=== PATIENT | female | born 1960 | race Caucasian/White ===

== ENCOUNTER 2020-11-20 10:08 | Emergency (ER) | payer OTHER ==
[~2020-11-20] VITALS: Ht 170.2 cm; Wt 60.0 kg
--- NOTE | 2020-11-20 10:54 | PHYS DOC ---
Past History Past Medical History: Diabetes, Hypertension (RILEY EVANS APRN) General Adult EDM: Chief Complaint: NAUSEA/VOMITING/DIARRHEA HPI: HPI: Patient is a 60-year-old female that presents today with multiple complaints. Per son patient symptoms started after second Covid vaccine on October 16, 2020. Patient's son states after vaccine patient had experienced fever chills abdominal pain and cough and though symptoms have continued. Patient has been seen multiple times by primary care physician per son, outpatient labs have been completed by primary care physician son is unsure of results. Patient was to have an outpatient CT scan at [facility] and son declined to take patient stating that he she needed to be seen sooner than that. Son also reports patient fell yesterday in the middle of the night, patient unsure if she passed out or not. Patient also reports abdominal pain patient also reports no bowel movement x3 weeks. Patient also reports psoriasis is acting up. Patient states she check her blood sugar this am and it was 97.[] (RILEY EVANS FRAUD ANALYST) Review of Systems: Review of Systems: Constitutional: fever or chills Eyes: Denies change in visual acuity HENT: nasal congestion, no sore throat Respiratory: shortness of breath Cardiovascular: Denies chest pain or edema GI: abdominal pain, nausea, vomiting, bloody stools or diarrhea : Denies dysuria Musculoskeletal: Denies back pain or joint pain Integument: Denies rash Neurologic: Denies headache, C/O dizziness and balance issues. Endocrine: Denies polyuria or polydipsia Lymphatic: Denies swollen glands Psychiatric: Denies depression or anxiety (RILEY EVANS APRN) Current Medications: Current Meds: Metformin thyroid medications (RILEY EVANS APRN) Allergies: Allergies: Allergies Coded Allergies Type Severity Reaction Last Updated Verified No Known Drug Allergies 11/20/20 No (RILEY EVANS APRN) Physical Exam: PE: Constitutional: Patient thin no acute distress noted HENT: Bruising abrasion noted to bridge of nose, mucous membranes dry tongue with white film. [] Eyes: PERRLA, EOMI, conjunctiva normal, no discharge. [] Neck: Normal range of motion, no tenderness, supple, no stridor. [] Cardiovascular:Heart rate regular rhythm, no murmur [] Lungs & Thorax: Bilateral breath sounds clear to auscultation [] Abdomen: Bowel sounds hypoactive, soft, tenderness over left upper and lower abdomen [] Skin: Psoriasis rash noted over arms and hands, abrasion to left hand [] Back: No tenderness, no CVA tenderness. [] Extremities: No tenderness, no cyanosis, no clubbing, ROM intact, no edema. [] Neurologic: Alert and oriented X 3, normal motor function, normal sensory function, no focal deficits noted. [] Psychologic: Affect flat, normal judgement noted. [] (RILEY EVANS APRN) Current Patient Data: Labs: Laboratory Tests Test 11/20/20 10:55 11/20/20 12:25 White Blood Count 8.8 x10^3/uL Red Blood Count 5.36 x10^6/uL Hemoglobin 15.4 g/dL Hematocrit 46.9 % Mean Corpuscular Volume 88 fL Mean Corpuscular Hemoglobin 29 pg Mean Corpuscular Hemoglobin Concent 33 g/dL Red Cell Distribution Width 15.9 % Platelet Count 169 x10^3/uL Neutrophils (%) (Auto) 64 % Lymphocytes (%) (Auto) 26 % Monocytes (%) (Auto) 7 % Eosinophils (%) (Auto) 2 % Basophils (%) (Auto) 1 % Neutrophils # (Auto) 5.6 x10^3uL Lymphocytes # (Auto) 2.3 x10^3/uL Monocytes # (Auto) 0.6 x10^3/uL Eosinophils # (Auto) 0.2 x10^3/uL Basophils # (Auto) 0.1 x10^3/uL Sodium Level 140 mmol/L Potassium Level 4.7 mmol/L Chloride Level 101 mmol/L Carbon Dioxide Level 23 mmol/L Anion Gap 16 Blood Urea Nitrogen 43 mg/dL Creatinine 1.8 mg/dL Estimated GFR (Cockcroft-Gault) 28.7 BUN/Creatinine Ratio 24 Glucose Level 86 mg/dL Lactic Acid Level 1.5 mmol/L Calcium Level 10.9 mg/dL Total Bilirubin 0.6 mg/dL Aspartate Amino Transf (AST/SGOT) 14 U/L Alanine Aminotransferase (ALT/SGPT) 20 U/L Alkaline Phosphatase 84 U/L Total Protein 7.4 g/dL Albumin 4.2 g/dL Albumin/Globulin Ratio 1.3 Urine Collection Type Unknown Urine Color Yellow Urine Clarity Clear Urine pH 5.5 Urine Specific Thompson >=1.030 Urine Protein 100 mg/dl Urine Glucose (UA) Neg mg/dL Urine Ketones (Stick) >=160 mg/dL Urine Blood Neg Urine Nitrite Neg Urine Bilirubin Large Urine Urobilinogen Dipstick 1.0 mg/dL Urine Leukocyte Esterase Neg Urine RBC Occ /HPF Urine WBC 5-10 /HPF Urine Squamous Epithelial Cells Many /LPF Urine Bacteria 0 /HPF Urine Hyaline Casts Occ /HPF Urine Mucus Slight /LPF Urine Yeast Present /HPF Urine Opiates Screen Neg Urine Methadone Screen Neg Urine Barbiturates Neg Urine Phencyclidine Screen Neg Urine Amphetamine/Methamphetamine Neg Urine Benzodiazepines Screen Neg Urine Cocaine Screen Neg Urine Cannabinoids Screen Neg Urine Ethyl Alcohol Neg Current Medications Medications (Trade) Dose Ordered Sig/Ryan Route PRN Reason Start Time Stop Time Status Last Admin Dose Admin Iohexol (Omnipaque 300 Mg/ml) 75 ml 1X ONCE IV 11/20/20 11:00 11/20/20 11:01 DC Sodium Chloride 1,000 ml @ 1,000 mls/hr 1X ONCE IV 11/20/20 11:00 11/20/20 11:59 DC 11/20/20 11:22 Acetaminophen (Tylenol) 1,000 mg 1X ONCE PO 11/20/20 11:15 11/20/20 11:26 DC 11/20/20 11:23 (RILEY EVANS FRAUD ANALYST) EKG: EKG: [] (RILEY EVANS APRN) Radiology/Procedures: Radiology/Procedures: PROCEDURE: CT ABDOMEN PELVIS WO CONTRAST EXAMINATION: CT abdomen and pelvis without IV contrast. INDICATION:60 years, Female, fall with dizziness. TECHNIQUE: Axial CT images of the abdomen and pelvis were obtained. Coronal and sagittal reformatted performed. COMPARISON: 11/11/2005. Exposure: One or more of the following individualized dose reduction techniques were utilized for this examination: 1. Automated exposure control 2. Adjustment of the mA and/or kV according to patient size 3. Use of iterative reconstruction technique. FINDINGS: LOWER CHEST: Mild to moderate centrilobular pulmonary emphysema. Trace amount of pericardial effusion. ABDOMEN/PELVIS: Within limitation of noncontrast exam, Normal size and morphology of the liver. Geographic shape hypoattenuating area in hepatic segment 4 adjacent to falciform ligament measures 3.6 x 2.1 cm, favors to represent focal fat infiltration. Tiny calcified cholelithiasis. No acute cholecystitis. No biliary ductal dilation. Unremarkable spleen and adrenal glands. Focal fullness of the pancreatic body (series 4 image 42). No hydronephrosis or nephrolithiasis kidney. No bowel obstruction or wall thickening. Normal appendix. Colonic diverticulosis without acute diverticulitis. Moderate aortoiliac atherosclerotic disease without dilatation. No lymphadenopathy in the abdomen or pelvis by size criteri a. No pneumoperitoneum or ascites. Decompressed urinary bladder which limits evaluation. Hysterectomy changes. MUSCULOSKELETAL: No acute osseous process or suspicious lesion. Multilevel degenerative changes in the spine. IMPRESSION: 1. No acute abnormality in the abdomen or pelvis, within the limitation of noncontrast exam. 2. Focal fullness of the pancreatic body, may represent focal lobulation of the normal pancreatic parenchyma. Recommend further evaluation with CT/MRI abdomen without IV contrast to exclude underlying neoplasm. 3. Geographic shape 3.6 cm hypoattenuating area in hepatic segment 4 adjacent to falciform ligament, favors focal fat infiltration. This can be further evaluated by the recommended exam. 4. Colonic diverticulosis. 5. Tiny calcified cholelithiasis. Electronically signed by: Forrest Hayward MD (11/20/2020 12:06 PM) [facility] [REASON: fall with dizziness PROCEDURE: CT HEAD WO CONTRAST PQRS Compliance Statement: One or more of the following individualized dose reduction techniques were utilized for this examination: 1. Automated exposure control 2. Adjustment of the mA and/or kV according to patient size 3. Use of iterative reconstruction technique CT head without contrast 11/20/2020 11:35 AM INDICATION: Fall with dizziness COMPARISON: None available TECHNIQUE: Multiple axial CT images of the head were obtained from skull base through the vertex without intravenous contrast. FINDINGS: Head: Ventricles, sulci and basal cisterns are within normal limits. Low-attenuation in the periventricular white matter is suggestive of chronic small vessel ischemic changes. There is no hydrocephalus. [place]-white matter differentiation is normal. There is no acute intracranial hemorrhage. There is no mass, mass effect or midline shift. Posterior fossa is normal in appearance. Visualized portions of the orbits are normal. Paranasal sinuses are well aerated. Mastoid air cells are well aerated. Scalp and calvaria are normal. IMPRESSION: No acute intracranial hemorrhage. Low-attenuation in the periventricular white matter is suggestive of chronic small vessel ischemic changes. Electronically signed by: Joslyn Sweet MD (11/20/2020 12:32 PM) [id number]] REASON: fever and cough PROCEDURE: CHEST PA & LATERAL EXAM: CHEST 2 VIEWS. HISTORY: Fever and cough. COMPARISON: None. FINDINGS: Frontal and lateral views of the chest are obtained. There are no confluent infiltrates. There is no pneumothorax or pleural effusion. The heart is not enlarged. IMPRESSION: 1. No confluent infiltrates. Electronically signed by: Sarah Atwood MD (11/20/2020 12:32 PM) [id number] (RILEY EVANS APRN) Heart Score: C/O Chest Pain: N/A Risk Factors: Risk Factors: DM, Current or recent (<one month) smoker, HTN, HLP, family history of CAD, obesity. Risk Scores: Score 0 - 3: 2.5% MACE over next 6 weeks - Discharge Home Score 4 - 6: 20.3% MACE over next 6 weeks - Admit for Clinical Observation Score 7 - 10: 72.7% MACE over next 6 weeks - Early Invasive Strategies (RILEY EVANS APRN) Course & Med Decision Making: Course & Med Decision Making Pertinent Labs and Imaging studies reviewed. (See chart for details) 1140 spoke to son regarding medications patient takes son states the patient takes Metformin and some kind of thyroid medication son also states that they have been adjusting patient's thyroid medication due to abnormal lab levels over the last 3 to 4 weeks.[] 1350 spoke with patient and significant other regarding lab results and x-ray results. Patient states that she has not been eating very much and has been not drinking very much as well. Patient encouraged to drink and eat at least 1500 to 2000 humberto with equal portions of good fats proteins and carbohydrates. Patient instructed to follow-up with primary care physician for further evaluation of radiology results. Patient to be sent home. Patient and significant other agree with plan of care. Will give remaining IV fluids and send patient home. (RILEY EVANS APRN) Dragon Disclaimer: Dragon Disclaimer: This electronic medical record was generated, in whole or in part, using a voice recognition dictation system. (RILEY EVANS APRN) Attending Co-Sign The patient was seen and interviewed as well as examined at the bedside. The art was reviewed. The case was discussed. Agree with the plan of care. (FÁTIMA ADAN DO) Departure Departure: Impression: Primary Impression: Viral syndrome Additional Impressions: Dehydration Decrease in appetite Disposition: HOME / SELF CARE / HOMELESS Condition: STABLE Referrals: BARI CHERRY MD (PCP) Patient Instructions: 1800 Calorie Diet for Diabetes Meal Planning, Dehydration, Adult, Viral Syndrome Additional Instructions: Keep a food diary to determine caloric intake, make sure it is a balance of good fats proteins and carbohydrates. Increase fluid intake. Treat fever with Tylenol last dose 1130 Follow-up with primary care physician in the next 2 to 3 days. Return to the emergency department if symptoms get worse. RILEY EVANS APRN Nov 20, 2020 10:54 FÁTIMA ADAN DO Nov 20, 2020 17:34
[2020-11-20] MEDS ORDERED: IOHEXOL 300 MG/ML 75 ML VIAL. IV ONE (11:00)
[2020-11-20 11:17] LABS: BASO # 0.1 x10^3/uL (0.0-0.2); BASO % 1 % (0-3); EOS # 0.2 x10^3/uL (0.0-0.7); EOS % 2 % (0-3); HEMATOCRIT 46.9 % (36.0-47.0); HEMOGLOBIN 15.4 g/dL (12.0-15.5); LYMPH # 2.3 x10^3/uL (1.0-4.8); LYMPH % 26 % (24-48); MEAN CORPUSCULAR HEMOGLOBIN 29 pg (25-35); MEAN CORPUSCULAR HGB CONC 33 g/dL (31-37); MEAN CORPUSCULAR VOLUME 88 fL (79-100); MONO # 0.6 x10^3/uL (0.0-1.1); MONO % 7 % (0-9); NEUT # 5.6 x10^3uL (1.8-7.7); NEUT % 64 % (31-73); PLATELET COUNT 169 x10^3/uL (140-400); RED BLOOD COUNT 5.36 x10^6/uL (3.50-5.40); RED CELL DISTRIBUTION WIDTH 15.9 % (11.5-14.5); WHITE BLOOD COUNT 8.8 x10^3/uL (4.0-11.0)
[2020-11-20] MEDS: IV NORMAL SALINE 1,000ML 1,000 ML IV ONE (11:22)
[2020-11-20] MEDS: ACETAMINOPHEN 500 MG TABLET PO ONE (11:23)
[2020-11-20 11:40] LABS: ALBUMIN 4.2 g/dL (3.4-5.0); ALBUMIN/GLOBULIN RATIO 1.3 (1.0-1.7); CALCIUM 10.9 mg/dL (8.5-10.1); CREATININE 1.8 mg/dL (0.6-1.0); GFR 28.7; POTASSIUM 4.7 mmol/L (3.5-5.1); TOTAL BILIRUBIN 0.6 mg/dL (0.2-1.0); TOTAL PROTEIN 7.4 g/dL (6.4-8.2)
--- NOTE | 2020-11-20 12:08 | RAD ---
EXAMINATION: CT abdomen and pelvis without IV contrast. INDICATION:60 years, Female, fall with dizziness. TECHNIQUE: Axial CT images of the abdomen and pelvis were obtained. Coronal and sagittal reformatted performed. COMPARISON: 11/11/2005. Exposure: One or more of the following individualized dose reduction techniques were utilized for thi s examination: 1. Automated exposure control 2. Adjustment of the mA and/or kV according to patient size 3. Use of iterative reconstruction technique. FINDINGS: LOWER CHEST: Mild to moderate centrilobular pulmonary emphysema. Trace amount of pericardial effusion. ABDOMEN/PELVIS: Within limitation of noncontrast exam, Normal size and morphology of the liver. Geographic shape hypoattenuating area in hepatic segment 4 a djacent to falciform ligament measures 3.6 x 2.1 cm, favors to represent focal fat infiltration. Tiny calcified cholelithiasis. No acute cholecystitis. No biliary ductal dilation. Unremarkable spleen an d adrenal glands. Focal fullness of the pancreatic body (series 4 image 42). No hydronephrosis or nep hrolithiasis kidney. No bowel obstruction or wall thickening. Normal appendix. Colonic diverticulosis without acute divert iculitis. Moderate aortoiliac atherosclerotic disease without dilatation. No lymphadenopathy in the a bdomen or pelvis by size criteria. No pneumoperitoneum or ascites. Decompressed urinary bladder which limits evaluation. Hysterectomy changes. MUSCULOSKELETAL: No acute osseous process or suspicious lesion. Multilevel degenerative changes in the spine. IMPRESSION: 1. No acute abnormality in the abdomen or pelvis, within the limitation of noncontrast exam. 2. Focal fullness of the pancreatic body, may represent focal lobulation of the normal pancreatic par enchyma. Recommend further evaluation with CT/MRI abdomen without IV contrast to exclude underlying n eoplasm. 3. Geographic shape 3.6 cm hypoattenuating area in hepatic segment 4 adjacent to falciform ligament, favors focal fat infiltration. This can be further evaluated by the recommended exam. 4. Colonic diverticulosis. 5. Tiny calcified cholelithiasis. Electronically signed by: Forrest Hayward MD (11/20/2020 12:06 PM) [facility]
--- NOTE | 2020-11-20 12:35 | RAD ---
EXAM: CHEST 2 VIEWS. HISTORY: Fever and cough. COMPARISON: None. FINDINGS: Frontal and lateral views of the chest are obtained. There are no confluent infiltrates. There is no pneumothorax or pleural effusion. The heart is not en larged. IMPRESSION: 1. No confluent infiltrates. Electronically signed by: Sarah Atwood MD (11/20/2020 12:32 PM) [id number]
--- NOTE | 2020-11-20 12:35 | RAD ---
PQRS Compliance Statement: One or more of the following individualized dose reduction techniques were utilized for this examinat ion: 1. Automated exposure control 2. Adjustment of the mA and/or kV according to patient size 3. Use of iterative reconstruction technique CT head without contrast 11/20/2020 11:35 AM INDICATION: Fall with dizziness COMPARISON: None available TECHNIQUE: Multiple axial CT images of the head were obtained from skull base through the vertex with out intravenous contrast. FINDINGS: Head: Ventricles, sulci and basal cisterns are within normal limits. Low-attenuation in the periventricular white matter is suggestive of chronic small vessel ischemic changes. There is no hydrocephalus. [place] -white matter differentiation is normal. There is no acute intracranial hemorrhage. There is no mass, mass effect or midline shift. Posterior fossa is normal in appearance. Visualized portions of the orbits are normal. Paranasal sinuses are well aerated. Mastoid air cells a re well aerated. Scalp and calvaria are normal. IMPRESSION: No acute intracranial hemorrhage. Low-attenuation in the periventricular white matter is suggestive of chronic small vessel ischemic ch anges. Electronically signed by: Joslyn Sweet MD (11/20/2020 12:32 PM) [id number]
[2020-11-20 13:32] LABS: BARBITURATES NEG (NEG); BENZODIAZEPINES NEG (NEG); CANNABINOIDS NEG (NEG); COCAINE NEG (NEG); METHADONE NEG (NEG); OPIATES NEG (NEG); PHENCYCLIDINE NEG (NEG)
[2020-11-20 13:35] LABS: BACTERIA,URINE 0 /HPF (0-FEW); BILIRUBIN,URINE LARGE (NEG); CLARITY,URINE CLEAR; COLOR,URINE YELLOW; GLUCOSE,URINE NEG (NEG); NITRITE,URINE NEG (NEG); RBC,URINE OCC /HPF (0-2); SQUAMOUS EPITHELIAL CELL,UR MANY /LPF
[2020-11-20 13:36] LABS: HYALINE CASTS, URINE OCC /HPF; YEAST,URINE PRESENT /HPF
[2020-11-20 13:39] LABS: AMPHETAMINE/METHAMPHETAMINE NEG (NEG)
[2020-11-20 13:54] VITALS: BP 167/91
== END 2020-11-20 14:14 | disposition home or self-care (01) ==
LOC: ER 10:08
DX: S00.33XA Contusion of nose, initial encounter (principal); S60.512A Abrasion of left hand, initial encounter; B34.9 Viral infection, unspecified; E86.0 Dehydration; R63.0 Anorexia; E11.9 Type 2 diabetes mellitus without complications; I10 Essential (primary) hypertension; W18.39XA Other fall on same level, initial encounter; Y93.89 Activity, other specified; Y92.89 Other specified places as the place of occurrence of the external cause; Y99.8 Other external cause status
CPT/HCPCS: 70450; 71046; 74176; 80053; 80307; 81001; 83605; 85025; 87086; 96360; 96361; 99285; J7030

== ENCOUNTER 2020-12-10 10:19 | Emergency (ER) | payer OTHER ==
[~2020-12-10] VITALS: Ht 170.2 cm; Wt 54.0 kg
--- NOTE | 2020-12-10 10:44 | PHYS DOC ---
Past History Past Medical History: Diabetes, Hypertension, Hypothyroid Past Medical History Limited secondary to baseline, decreased mentation Past Surgical History: Cholecystectomy (Laparoscopic on 12/02/2020), Hysterectomy Past Surgical History Limited secondary to baseline, decreased mentation Smoking: Quit Greater Than 1 Year Alcohol Use: None Drug Use: None Social History Limited secondary to baseline, decreased mentation General Adult EDM: Chief Complaint: Nausea, vomiting, diarrhea HPI: HPI: Patient is a 60-year-old female with a past medical history of diabetes and hypertension presents with nausea, vomiting, and diarrhea for the past couple months. Patient does report 10 days ago she underwent laparoscopic gallbladder surgery at [facility] and her symptoms have worsened since. She reports not being able to eat or drink anything and reports being unable to take care of herself. She has been unable to take the nausea and pain medications provided by her surgeon. She does report that her stool has appeared dark or black in color recently. Her son reports that she complained of abdominal pain for about 2 months. He reports that her PCP is Dr. Cherry and is trying to set up home health or assisted living. She denies chest pain, shortness of breath, fevers, focal weakness, or dysuria. Denies trauma. Denies fever or chills. Denies known exposure to COVID-19. History of present illness limited secondary to baseline, decreased mentation Review of Systems: Review of Systems: Constitutional: Denies fever or chills; reports malaise Respiratory: Denies cough or shortness of breath Cardiovascular: Denies chest pain or palpitations GI: Reports abdominal pain, nausea, and vomiting : Denies dysuria Integument: Denies rash or skin lesions Neurologic: Denies headache; reports generalized weakness Review of systems limited secondary to baseline, decreased mentation Allergies: Allergies: Allergies Coded Allergies Type Severity Reaction Last Updated Verified No Known Drug Allergies 11/20/20 No Physical Exam: PE: Constitutional: Frail appearing with dried vomit around nares and dried stool noted to legs. HENT: Normocephalic, atraumatic, mucous membranes dry Eyes: PERRL, EOMI, conjunctiva normal, no discharge Neck: Normal range of motion, no tenderness, supple Lungs & Thorax: No respiratory distress, equal chest rise and fall Abdomen: Soft, epigastric and RUQ tenderness to palpation. No rebound or guarding. Ecchymosis noted around well-healing surgical incisions. Skin: Cool, dry, no erythema, no rash Back: No tenderness, no CVA tenderness. No sacral wounds. Extremities: No tenderness, ROM intact, no edema Neurologic: Alert and oriented X 3, normal motor function, normal sensory function, no focal deficits noted Psychologic: Affect normal, judgment normal EKG: EKG: Completed at 11:05, normal sinus at 85 BPM, no ST segment changes, QRS 98ms, QT 410ms, QTc 494ms Radiology/Procedures: Radiology/Procedures: PROCEDURE: CT ABD PELV W/ IV CONTRST ONLY EXAMINATION: CT abdomen and pelvis with IV contrast. INDICATION:60 years, Female, nausea vomiting and diarrhea, cholecystectomy 10 days ago. TECHNIQUE: Axial CT images of the abdomen and pelvis were obtained. Coronal and sagittal reformatted performed. COMPARISON: CT dated 11/20/2020. Exposure: One or more of the following individualized dose reduction techniques were utilized for this examination: 1. Automated exposure control 2. Adjustment of the mA and/or kV according to patient size 3. Use of iterative reconstruction technique. FINDINGS: LOWER CHEST: Mild centrilobular pulmonary emphysema. Trace amount of pericardial effusion. ABDOMEN/PELVIS: Normal size and morphology of the liver with homogeneous enhancement. Focal fat infiltration adjacent to falciform ligament, unchanged. Subcentimeter hypodensities in the left hepatic lobe, too small to characterize, statistically representing benign cysts. Interval post cholecystectomy status. There is an approximately 5.5 x 0.8 x 1.3 cm ill-defined fluid collection in subcapsular hepatic segment 5 adjacent to the gallbladder fossa, causing scalloping of the liver parenchyma, new since prior exam. Additional, linear-shaped soft tissue thickening in the hepatorenal interval, likely postsurgical. Focus of gas seen in the upper abdomen adjacent to the adjacent caudate lobe of the liver, likely postsurgical. Central intrahepatic biliary ductal dilation without extrahepatic ductal dilation, findings likely secondary to postcholecystectomy status. Unremarkable spleen and pancreas. Nodular thickening of the left adrenal gland without discrete nodule. Right adrenal gland is unremarkable. No hydronephrosis or nephrolithiasis in either kidney. Subcentimeter hypodensities in both renal cortices, too small to characterize. No bowel obstruction. Borderline right colonic wall thickening, with adjacent fat stranding. Normal appendix. Moderate aortoiliac atherosclerotic disease without narrowing or dilatation. Mesenteric arteries and portal vein are patent. Trace amount of complex free fluid in the pelvis with density measures 59 Hounsfield unit. No lymphadenopathy in the abdomen or pelvis by size criteria. Unremarkable urinary bladder. Hysterectomy changes. MUSC SKELETAL STRUCTURES: Postsurgical changes along the anterior abdominal wall. No acute osseous process or suspicious lesion. Mild degenerative changes in the lumbar spine. IMPRESSION: 1. Interval post cholecystectomy changes with a new small ill-defined fluid collection in subcapsular hepatic segment 5 adjacent to the gallbladder fossa. Differential consideration includes evolving hematoma, biloma and less likely abscess. Clinical correlation is advised. 2. Borderline right colonic wall thickening with adjacent fat stranding, may be reactive from recent surgery or related to infectious/inflammatory colitis. 3. Trace amount of pelvic hemoperitoneum, likely postsurgical. Consider correlation with hemoglobin level. Electronically signed by: Forrest Hayward MD (12/10/2020 12:28 PM) [id number] Heart Score: C/O Chest Pain: N/A Course & Med Decision Making: Course & Med Decision Making Pertinent Labs and Imaging studies reviewed. (See chart for details) Patient is a 60-year-old female with past medical history of diabetes, hypertension, and recent laparoscopic cholecystectomy [address] [facility]. She reports nausea, vomiting, and diarrhea for "months "that has worsened since her surgery. Physical exam concerning for dehydration. Differential diagnosis includes surgical complications including bile leak, hematoma, and biloma, along with GI bleed. Patient's CBC demonstrated an elevated WBC and slight anemia at 11.6 down from 15.4 on 11/20/20 per [employer] review. CMP was significant for hypokalemia of 2.5, BUN 51, Creatinine 1.1, total bilirubin of 1.9, and CK-MB of 4.2. UA was negative for WBCs/RBCs. Rapid COVID negative. Her CT abd/pelvis showed postsurgical changes and right colonic bowel wall thickening. EKG showed no acute ST segment changes. Pt was given pepcid and zofran IV with improvement in her nausea. Potassium was repleted with 40 meq IV. She received protonix 80 mg IV and 2 L NS. Patient requiring transfer for further evaluation and treatment and possible GI consultation. Discussed with Dr. Magana (hospitalist) at [facility] who is in agreement with transfer for admission. Discussed findings and plan with patient and son, who acknowledge understanding and agreement. Randall Disclaimer: Dragon Disclaimer: This electronic medical record was generated, in whole or in part, using a voice recognition dictation system. Departure Departure: Impression: Primary Impression: GI bleed Qualified Codes: K92.2 - Gastrointestinal hemorrhage, unspecified Additional Impressions: Dehydration Anemia Qualified Codes: D64.9 - Anemia, unspecified Hypokalemia Disposition: [address] [facility] ([facility]-Dr. Magana (hospitalist) accepting) Condition: STABLE Referrals: BARI CHERRY MD (PCP) Critical Care Time Critical care time was 30 minutes which includes time at bedside, spent in discussion of patient's care with specialists and/or family members, with interpretation of laboratory and/or radiological studies and is exclusive of procedures. CARMELINA HUFFMAN DO Dec 10, 2020 10:44
[2020-12-10] MEDS ORDERED: ONDANSETRON PF 4 MG/2 ML VIAL. IVP ONE ×2 (10:45→12:45)
[2020-12-10] MEDS ORDERED: IV NORMAL SALINE 1,000ML 1,000 ML IV ONE ×3 (10:45→12:45)
[2020-12-10] MEDS ORDERED: FAMOTIDINE 20 MG/2 ML VIAL IVP ONE (10:45)
[2020-12-10] MEDS ORDERED: IOHEXOL 300 MG/ML 75 ML VIAL. IV ONE (10:45)
--- NOTE | 2020-12-10 11:13 | EKG ---
[address] [address] Test Date: 2020-12-10 Test Time: 11:05:18 Pat Name: DIPAK BENZ Department: Room: Gender: F Supervisor [employer]: KALANI : 1960 Requested By: CARMELINA HUFFMAN Order Number: [id number] Reading MD: Marcos Jha Measurements Intervals [place] Rate: 85 P: 59 DE: 166 QRS: 53 QRSD: 98 T: 114 QT: 410 QTc: 494 Interpretive Statements SINUS RHYTHM PROLONGED QT Electronically Signed On 12-11-2020 16:00:50 CDT by Marcos Jha
[2020-12-10 11:17] LABS: BASO % 0 % (0-3); EOS % 0 % (0-3); HEMOGLOBIN 11.6 g/dL (12.0-15.5); LYMPH % 8 % (24-48); MEAN CORPUSCULAR HEMOGLOBIN 28 pg (25-35); MEAN CORPUSCULAR HGB CONC 33 g/dL (31-37); MEAN CORPUSCULAR VOLUME 85 fL (79-100); MONO # 0.6 x10^3/uL (0.0-1.1); MONO % 4 % (0-9); NEUT % 88 % (31-73); PLATELET COUNT 174 x10^3/uL (140-400); RED BLOOD COUNT 4.13 x10^6/uL (3.50-5.40); RED CELL DISTRIBUTION WIDTH 15.4 % (11.5-14.5); WHITE BLOOD COUNT 12.6 x10^3/uL (4.0-11.0)
[2020-12-10 11:40] LABS: BACTERIA,URINE 0 /HPF (0-FEW); CLARITY,URINE CLEAR; COLOR,URINE BROWN; RBC,URINE 0 /HPF (0-2); SQUAMOUS EPITHELIAL CELL,UR OCC /LPF; WBC,URINE RARE /HPF (0-4)
[2020-12-10 11:43] LABS: FECAL OB PT POSITIVE (NEG)
[2020-12-10 11:44] LABS: ALBUMIN 3.2 g/dL (3.4-5.0); ALBUMIN/GLOBULIN RATIO 1.1 (1.0-1.7); CREATININE 1.1 mg/dL (0.6-1.0); GFR 50.7; MAGNESIUM 2.1 mg/dL (1.8-2.4); TOTAL BILIRUBIN 1.9 mg/dL (0.2-1.0); TOTAL PROTEIN 6.1 g/dL (6.4-8.2)
[2020-12-10 11:51] LABS: POTASSIUM 2.5 mmol/L (3.5-5.1)
[2020-12-10] MEDS ORDERED: PANTOPRAZOLE IV 40 MG VIAL. IVP ONE (12:00)
--- NOTE | 2020-12-10 12:30 | RAD ---
EXAMINATION: CT abdomen and pelvis with IV contrast. INDICATION:60 years, Female, nausea vomiting and diarrhea, cholecystectomy 10 days ago. TECHNIQUE: Axial CT images of the abdomen and pelvis were obtained. Coronal and sagittal reformatted performed. COMPARISON: CT dated 11/20/2020. Exposure: One or more of the following individualized dose reduction techniques were utilized for thi s examination: 1. Automated exposure control 2. Adjustment of the mA and/or kV according to patient size 3. Use of iterative reconstruction technique. FINDINGS: LOWER CHEST: Mild centrilobular pulmonary emphysema. Trace amount of pericardial effusion. ABDOMEN/PELVIS: Normal size and morphology of the liver with homogeneous enhancement. Focal fat infiltration adjacent to falciform ligament, unchanged. Subcentimeter hypodensities in the left hepatic lobe, too small to characterize, statistically representing benign cysts. Interval post cholecystectomy status. There i s an approximately 5.5 x 0.8 x 1.3 cm ill-defined fluid collection in subcapsular hepatic segment 5 a djacent to the gallbladder fossa, causing scalloping of the liver parenchyma, new since prior exam. A dditional, linear-shaped soft tissue thickening in the hepatorenal interval, likely postsurgical. Foc us of gas seen in the upper abdomen adjacent to the adjacent caudate lobe of the liver, likely postsu rgical. Central intrahepatic biliary ductal dilation without extrahepatic ductal dilation, findings likely se condary to postcholecystectomy status. Unremarkable spleen and pancreas. Nodular thickening of the le ft adrenal gland without discrete nodule. Right adrenal gland is unremarkable. No hydronephrosis or n ephrolithiasis in either kidney. Subcentimeter hypodensities in both renal cortices, too small to mitali racterize. No bowel obstruction. Borderline right colonic wall thickening, with adjacent fat stranding. Normal a ppendix. Moderate aortoiliac atherosclerotic disease without narrowing or dilatation. Mesenteric [place] and portal vein are patent. Trace amount of complex free fluid in the pelvis with density measur es 59 Hounsfield unit. No lymphadenopathy in the abdomen or pelvis by size criteria. Unremarkable uri nary bladder. Hysterectomy changes. MUSC SKELETAL STRUCTURES: Postsurgical changes along the anterior abdominal wall. No acute osseous process or suspicious lesion . Mild degenerative changes in the lumbar spine. IMPRESSION: 1. Interval post cholecystectomy changes with a new small ill-defined fluid collection in subcapsular hepatic segment 5 adjacent to the gallbladder fossa. Differential consideration includes evolving he matoma, biloma and less likely abscess. Clinical correlation is advised. 2. Borderline right colonic wall thickening with adjacent fat stranding, may be reactive from recent surgery or related to infectious/inflammatory colitis. 3. Trace amount of pelvic hemoperitoneum, likely postsurgical. Consider correlation with hemoglobin l evel. Electronically signed by: Forrest Hayward MD (12/10/2020 12:28 PM) [id number]
[2020-12-10] MEDS: POTASSIUM CHLORIDE 10MEQ 100 ML IV SCH ×2 (12:51→13:55)
[2020-12-10 15:45] VITALS: BP 150/88
[2020-12-10] MEDS ORDERED: POTASSIUM CHLORIDE 10MEQ 100 ML IV SCH (15:45)
== END 2020-12-10 16:00 | disposition short-term general hospital (02) ==
LOC: ER 10:19
DX: K92.2 Gastrointestinal hemorrhage, unspecified (principal); E86.0 Dehydration; D64.9 Anemia, unspecified; E87.6 Hypokalemia; E11.9 Type 2 diabetes mellitus without complications; I10 Essential (primary) hypertension; E03.9 Hypothyroidism, unspecified; Z20.822 Contact with and (suspected) exposure to COVID-19; Z87.891 Personal history of nicotine dependence; Z90.49 Acquired absence of other specified parts of digestive tract
CPT/HCPCS: 36415; 74177; 80053; 81001; 82274; 82553; 83605; 83690; 83735; 84484; 85025; 87426; 93005; 96361; 96365; 96366; 96375; 96376; 99285; C9113; C9803; J2405; J3480; J3490; J7030; Q9967; U0003